=== PATIENT | female | born 1945 | race Two or more races ===

== ENCOUNTER 2021-10-20 03:20 | Inpatient (IN) | payer OTHER ==
[~2021-10-20] VITALS: Ht 154.9 cm; Wt 95.7 kg
--- NOTE | 2021-10-20 03:31 | NUR ---
BIBRA 39 FROM C/O LOW BS PER EMS 44ON SCENE, GIVEN Glucagon BY EMS AND BS 108 SAUSAGE LINKER. HX DM2. PT AWAKE AND ALERT X4 BREATHING EVEN AND UNLABORED. PLACED ON MONITOR AND V/S WNL.
--- NOTE | 2021-10-20 03:35 | NUR ---
POC BG 115. AWARE
--- NOTE | 2021-10-20 03:40 | NUR ---
20G RAC ESTABLISHED . BLOOD DRAWN AND SENT TO LAB
[2021-10-20] MEDS ORDERED: HYDROCODONE/APAP 5/325MG TABLET ONE (03:41)
[2021-10-20 03:49] LABS: BASOPHILS % (AUTO) 0.3 % (0.0-2.0); EOSINOPHILS % (AUTO) 4.2 % (0.0-6.0); HEMATOCRIT 28 % (33-45); HEMOGLOBIN 9.2 g/dL (11.5-14.8); LYMPHOCYTES # (AUTO) 1.1 K/uL (0.8-4.8); LYMPHOCYTES % (AUTO) 12.9 % (20.0-44.0); MEAN CORPUSCULAR HGB CONC 33 g/dl (31.0-36.0); MEAN CORPUSCULAR VOLUME 88 fL (82-100); MONOCYTES # (AUTO) 0.7 K/uL (0.1-1.30); MONOCYTES % (AUTO) 7.9 % (2.0-12.0); NEUTROPHILS # (AUTO) 6.5 K/uL (1.8-8.9); NEUTROPHILS % (AUTO) 74.7 % (43.0-81.0); PLATELET COUNT (AUTO) 169 K/uL (150-450); RED BLOOD CELL COUNT(AUTO) 3.12 MIL/uL (4.0-5.2); WHITE BLOOD COUNT (AUTO) 8.7 K/uL (4.3-11.0)
[2021-10-20] MEDS ORDERED: HYDROCODONE/APAP 5/325MG TABLET PO ONE (04:00)
[2021-10-20 04:04] LABS: CARBON DIOXIDE 28 mmol/L (21-32); CHLORIDE 102 mmol/L (98-107); CREATININE 2.5 mg/dL (0.6-1.3); GLUCOSE 127 mg/dL (74-106); POTASSIUM 5.6 mmol/L (3.5-5.1); SODIUM SERUM 135 mmol/L (136-145); UREA NITROGEN, BLOOD 33 mg/dL (7-18)
[2021-10-20 04:09] LABS: ALANINE AMINOTRANSFERASE 15 U/L (12-78); ALBUMIN 3.2 g/dL (3.4-5.0); ALKALINE PHOSPHATASE 90 U/L (46-116); ASPARTATE AMINOTRANSFERASE 27 U/L (15-37); BILIRUBIN,DIRECT 0.1 mg/dL (0.0-0.2); BILIRUBIN,TOTAL 0.4 mg/dL (0.2-1.0)
--- NOTE | 2021-10-20 04:20 | NUR ---
URINE COLLECTED AND SENT TO LAB
--- NOTE | 2021-10-20 04:20 | NUR ---
VIKASH COLLECTED AND SENT TO LAB
[2021-10-20 04:38] LABS: BILIRUBIN,URINE NEGATIVE (NEGATIVE); COLOR,URINE YELLOW (YELLOW); LEUKOCYTE ESTERASE ,URINE SMALL (NEGATIVE); NITRITE, URINE NEGATIVE (NEGATIVE); PROTEIN,URINE TRACE mg/dl (NEGATIVE); UGLUCOSE NEGATIVE (NEGATIVE); UROBILINOGEN,URINE 0.2 EU/dL (0.2)
[2021-10-20 04:55] LABS: BACTERIA,URINE Rare /HPF (None Seen); RBC,URINE 0-2 /HPF (0-2); SQUAMOUS EPITHELIAL CELL,UR Few /HPF (None Seen)
--- NOTE | 2021-10-20 07:20 | NUR ---
epic panel paged
--- NOTE | 2021-10-20 07:57 | NUR ---
AWALK AND ALERT NO SOB OR DISCOMFORT NOTED
[2021-10-20] MEDS ORDERED: LIRA0.6P2 SQ (07:58)
[2021-10-20] MEDS ORDERED: RANO500T6 PO (07:58)
[2021-10-20] MEDS ORDERED: LISI40TA13 PO (07:58)
[2021-10-20] MEDS ORDERED: INSU300I3 SQ (07:58)
[2021-10-20] MEDS ORDERED: CARV3.122 PO (07:58)
[2021-10-20] MEDS ORDERED: INSU100I14 SQ (07:58)
[2021-10-20] MEDS ORDERED: PREG-59 PO (07:58)
[2021-10-20] MEDS ORDERED: OMEP40CA21 PO (07:58)
[2021-10-20] MEDS ORDERED: ATOR40TA PO (07:58)
--- NOTE | 2021-10-20 07:58 | NUR ---
VINCE [facility] BED SIDE [facility]
--- NOTE | 2021-10-20 08:35 | NUR ---
ACCU CHECKED DONE 114MG/LD MD AWARE NO ORDER
--- NOTE | 2021-10-20 08:50 | NUR ---
BED GIVEN 308-1
[2021-10-20] MEDS ORDERED: MAGNESIUM HYDROXIDE 30 ML UDC PO PRN (09:00)
[2021-10-20] MEDS ORDERED: MAG HYDROX/AL HYDROX/SIMETH 30 ML UDC PO PRN (09:00)
[2021-10-20] MEDS ORDERED: DEXTROSE 50%-WATER 50 ML DISP.SYRIN IV PRN (09:00)
[2021-10-20] MEDS ORDERED: ONDANSETRON HCL/PF 4 MG/2 ML VIAL IVP PRN (09:00)
[2021-10-20] MEDS ORDERED: ZOLPIDEM TARTRATE 5 MG TABLET PO PRN (09:00)
[2021-10-20] MEDS ORDERED: Z GUARD REMEDY 4 OZ OINT TP PRN (09:00)
[2021-10-20] MEDS ORDERED: ACETAMINOPHEN 325 MG TABLET PO PRN (09:00)
--- NOTE | 2021-10-20 09:06 | NUR ---
HAND OFF TO RADHA VINES TO ROOM 308-1 VIA GARJADA OCASIO VAS AND CONDTION
--- NOTE | 2021-10-20 09:45 | NUR ---
RN Receiving Note PT Arrived to unit, AO x4 able to provide health history and reason for admission, able to express her own concerns. Patients vitals signs are stable, arrived with a Urine Baker catheter 1200ml, no signs of complications, urine clear/yellow. Patient oriented to the floor and was educated on how to use call light. All safety precautions taken with pt, no incident, call light and table within reach, bed at lowest position.
[2021-10-20] MEDS: RANOLAZINE 500 MG TAB.ER.12H PO SCH ×2 (09:59→16:45)
[2021-10-20] MEDS: PREGABALIN 100 MG CAPSULE PO SCH ×3 (09:59→16:45)
[2021-10-20] MEDS: CARVEDILOL 3.125 MG TABLET PO SCH ×2 (10:00→16:51)
[2021-10-20] MEDS ORDERED: LISINOPRIL (20MG) 20 MG TABLET PO SCH (10:00)
[2021-10-20] MEDS: PANTOPRAZOLE 40 MG TABLET.DR PO SCH (11:09)
[2021-10-20] MEDS: BLOOD SUGAR DIAGNOSTIC 1 EACH STRIP VI SCH ×3 (12:13→21:55)
[2021-10-20 13:14] LABS: THYROID STIMULATING HORMONE 4.064 uIU/mL (0.358-3.74)
[2021-10-20] MEDS: *INSULIN REGULAR(HUMULIN R)HUM 100 UNIT/ML VIAL SQ PRN ×3 (14:12→21:55)
[2021-10-20] MEDS: IV NS 0.9% 1,000 ML IV PRN (15:25)
[2021-10-20 16:00] VITALS: BP 119/55
--- NOTE | 2021-10-20 18:54 | NUR ---
RN Closing Note PT AOx4, daughter at bedside. Pt able to express her own concerns. Patient maintained safe throughout shift, no incidents. Made pt and daughter aware of POC, to monitor sugars, troponin and blood pressure. Administering fluids as prescribed, no sign of infiltration. All safety precautions taken, call light and table within reach, bed at lowest position.
[2021-10-20 20:00] VITALS: BP 126/47
--- NOTE | 2021-10-20 20:24 | NUR ---
RAW STOCK DYEING MACHINE TENDER OPENING NOTE PATIENT AWAKE IN BED WITH DAUGHTER AT BEDSIDE, ALERT/ORIENTED X 4, PATIENT ABLE TO MAKE NEEDS KNOWN. PATIENT COMPLAINING OF BACK PAIN, PT S/P BACK SURGERY ON 10/11/21, ELECTRICAL SYSTEMS ENGINEER MD PAIGE PENA ON FLOOR WITH ORDER FOR NORCO 5-325 MG PO Q4H PRN. PATIENT ON EXTERNAL TOLL TICKET CLERK READING SINUS RHYTHM WITH ST DEPRESSION, HR: 75. PATIENT AMBULATED TO BATHROOM WITH SBA BUT REQUESTED BSC. SAFETY MEASURES IN PLACE: CALL LIGHT WITHIN REACH, SIDE RAILS UP X 2, BED LOCKED IN LOWEST POSITION, BED ALARM ON. WILL CONTINUE TO MONITOR PATIENT
[2021-10-20] MEDS ORDERED: HYDROCODONE/APAP 5/325MG TABLET PO PRN (20:30)
[2021-10-20] MEDS: ATORVASTATIN 40 MG TABLET PO SCH (21:41)
[2021-10-21] VITALS: BP 121/51
[2021-10-21 04:00] VITALS: BP 104/48
[2021-10-21] MEDS: IV NS 0.9% 1,000 ML IV PRN (05:53)
[2021-10-21 06:00] LABS: BASOPHILS % (AUTO) 0.7 % (0.0-2.0); EOSINOPHILS % (AUTO) 7.2 % (0.0-6.0); HEMATOCRIT 25 % (33-45); HEMOGLOBIN 8.3 g/dL (11.5-14.8); LYMPHOCYTES # (AUTO) 1.8 K/uL (0.8-4.8); LYMPHOCYTES % (AUTO) 33.5 % (20.0-44.0); MEAN CORPUSCULAR HGB CONC 33 g/dl (31.0-36.0); MEAN CORPUSCULAR VOLUME 90 fL (82-100); MONOCYTES # (AUTO) 0.6 K/uL (0.1-1.30); MONOCYTES % (AUTO) 11.1 % (2.0-12.0); NEUTROPHILS # (AUTO) 2.6 K/uL (1.8-8.9); NEUTROPHILS % (AUTO) 47.5 % (43.0-81.0); PLATELET COUNT (AUTO) 174 K/uL (150-450); RED BLOOD CELL COUNT(AUTO) 2.78 MIL/uL (4.0-5.2); WHITE BLOOD COUNT (AUTO) 5.5 K/uL (4.3-11.0)
[2021-10-21 06:51] LABS: ALANINE AMINOTRANSFERASE 14 U/L (12-78); ALBUMIN 2.9 g/dL (3.4-5.0); ALKALINE PHOSPHATASE 82 U/L (46-116); ASPARTATE AMINOTRANSFERASE 22 U/L (15-37); BILIRUBIN,TOTAL 0.3 mg/dL (0.2-1.0); CALCIUM, SERUM 8.3 mg/dL (8.5-10.1); CARBON DIOXIDE 26 mmol/L (21-32); CHLORIDE 106 mmol/L (98-107); CREATININE 2.2 mg/dL (0.6-1.3); GLUCOSE 118 mg/dL (74-106); MAGNESIUM 1.4 mg/dL (1.8-2.4); PHOSPHORUS 4.7 mg/dL (2.5-4.9); POTASSIUM 5.6 mmol/L (3.5-5.1); SODIUM SERUM 137 mmol/L (136-145); TOTAL PROTEIN, SERUM 6.4 g/dL (6.4-8.2); UREA NITROGEN, BLOOD 34 mg/dL (7-18)
[2021-10-21 06:53] LABS: CHOLESTEROL 137 mg/dL (<200); HDL CHOLESTEROL 51 mg/dL (40-60); LDL 62 mg/dL (0-99); TRIGLYCERIDES 110 mg/dL (30-150)
[2021-10-21] MEDS: INSULIN REGULAR, HUMAN 100 UNIT/ML 3 ML VIAL SQ PRN (06:56)
[2021-10-21] MEDS: BLOOD SUGAR DIAGNOSTIC 1 EACH STRIP VI SCH ×4 (06:56→21:24)
--- NOTE | 2021-10-21 07:10 | NUR ---
RADIAL DRILL PRESS SET UP OPERATOR CLOSING NOTE PATIENT SLEEPING IN BED, ALERT/ORIENTED X 4, PATIENT ABLE TO MAKE NEEDS KNOWN. PATIENT ON EXTERNAL TAX AUDITOR READING SINUS RHYTHM WITH ST DEPRESSION, HR: 71. PATIENT AMBULATED TO BATHROOM WITH SBA. MEDICATIONS GIVEN ORDERED, PT NEEDS MET THROUGHOUT SHIFT, PAIN MANAGED. BLOOD SUGARS WNL, NO COVERAGE NEEDED PER SLIDING SCALE. SAFETY MEASURES IN PLACE: CALL LIGHT WITHIN REACH, SIDE RAILS UP X 2, BED LOCKED IN LOWEST POSITION, BED ALARM ON. WILL ENDORSE TO DAYSHIFT NURSE FOR CONTINUITY OF CARE
--- NOTE | 2021-10-21 07:20 | NUR ---
FENCE MAKING MACHINE OPERATOR OPENING NOTE RECEIVED PATIENT AWAKE IN BED , ALERT/ORIENTED X 4, PATIENT ABLE TO MAKE NEEDS KNOWN., PT S/P BACK SURGERY ON 10/11/21, NO C/O OF PAIN AND DISCOMFORT . PATIENT ON EXTERNAL MOTOR GRADER ROUGH GRADE READING SINUS RHYTHM WITH ST DEPRESSION, HR: 71. RAC G 20 WITH NS @75 ML /HR . SAFETY MEASURES IN PLACE: CALL LIGHT WITHIN REACH, SIDE RAILS UP X 2, BED LOCKED IN LOWEST POSITION, BED ALARM ON. WILL CONTINUE TO MONITOR PATIENT
[2021-10-21 08:00] VITALS: BP_SYST 124; BP_SYST 136; BP_DIAS 56; BP_DIAS 85
[2021-10-21] MEDS: Magnesium 1GM/D5W 100ML PREMIX 100 ML IV SCH ×2 (08:53→10:31)
[2021-10-21] MEDS: PANTOPRAZOLE 40 MG TABLET.DR PO SCH (08:53)
[2021-10-21] MEDS: RANOLAZINE 500 MG TAB.ER.12H PO SCH ×2 (08:53→16:36)
[2021-10-21] MEDS: PREGABALIN 100 MG CAPSULE PO SCH ×3 (08:54→16:37)
[2021-10-21] MEDS: CARVEDILOL 3.125 MG TABLET PO SCH ×2 (08:54→16:38)
[2021-10-21] MEDS: *INSULIN REGULAR(HUMULIN R)HUM 100 UNIT/ML VIAL SQ PRN ×3 (12:47→21:30)
--- NOTE | 2021-10-21 18:42 | NUR ---
RUSSIAN HISTORY PROFESSOR CLOSING NOTES PATIENT AWAKE IN BED , ALERT/ORIENTED X 4, PATIENT ABLE TO MAKE NEEDS KNOWN., PT S/P BACK SURGERY ON 10/11/21, ALL DUE MEDS GIVEN AND WITH LOW MG AND MAGNESIUM REPLACED OF 2 GMS IV , NO C/O OF PAIN AND DISCOMFORT . PATIENT ON EXTERNAL INDEPENDENT CONTRACTOR READING SINUS RHYTHM WITH IST DEGREE BLOCK HR: 72. LEFT HAND G # 24 WITH NS @75 ML /HR . SAFETY MEASURES IN PLACE: CALL LIGHT WITHIN REACH, SIDE RAILS UP X 2, BED LOCKED IN LOWEST POSITION, BED ALARM ON. ENDORSED TO NEXT SHIFT
[2021-10-21 20:00] VITALS: BP 100/66
--- NOTE | 2021-10-21 20:07 | NUR ---
WORKFORCE PLANNING ANALYST NOTES PATIENT AWAKE IN BED , ALERT/ORIENTED X 4, PATIENT ABLE TO MAKE NEEDS KNOWN., PT S/P BACK SURGERY ON 10/11/21, NO C/O OF PAIN AND DISCOMFORT. PATIENT ON EXTERNAL STOVE BOTTOM WORKER READING SINUS RHYTHM WITH IST DEGREE BLOCK HR: 72. LEFT HAND G # 24 WITH NS @75 ML /HR .SAFETY MEASURES IN PLACE: CALL LIGHT WITHIN REACH, SIDE RAILS UP X 2, BED LOCKED IN LOWEST POSITION, BED ALARM ON.
[2021-10-21] MEDS: ATORVASTATIN 40 MG TABLET PO SCH (21:24)
--- NOTE | 2021-10-21 21:30 | NUR ---
telecom engineer notes pt refused insulin per pt ' i didn't eat dinner i don't want my sugar to go too low if my sugar is still high in the morning i will let you cover it' risk and benefit explained x3 refused x3
[2021-10-22] VITALS: BP 131/63
[2021-10-22 04:00] VITALS: BP 124/56
[2021-10-22] MEDS: BLOOD SUGAR DIAGNOSTIC 1 EACH STRIP VI SCH ×4 (06:32→22:06)
[2021-10-22] MEDS: INSULIN REGULAR, HUMAN 100 UNIT/ML 3 ML VIAL SQ PRN ×3 (06:33→18:13)
[2021-10-22 06:42] LABS: BASOPHILS % (AUTO) 0.8 % (0.0-2.0); EOSINOPHILS % (AUTO) 5.8 % (0.0-6.0); HEMATOCRIT 26 % (33-45); LYMPHOCYTES # (AUTO) 1.5 K/uL (0.8-4.8); MEAN CORPUSCULAR HGB CONC 31 g/dl (31.0-36.0); MEAN CORPUSCULAR VOLUME 95 fL (82-100); MONOCYTES # (AUTO) 0.6 K/uL (0.1-1.30); MONOCYTES % (AUTO) 11.7 % (2.0-12.0); NEUTROPHILS # (AUTO) 2.6 K/uL (1.8-8.9); NEUTROPHILS % (AUTO) 51.7 % (43.0-81.0); PLATELET COUNT (AUTO) 167 K/uL (150-450); RED BLOOD CELL COUNT(AUTO) 2.71 MIL/uL (4.0-5.2); WHITE BLOOD COUNT (AUTO) 5.1 K/uL (4.3-11.0)
--- NOTE | 2021-10-22 06:46 | NUR ---
PRODUCTION LINE ASSEMBLER CLOSING NOTE PATIENT SLEEPING IN BED, ALERT/ORIENTED X 4, PATIENT ABLE TO MAKE NEEDS KNOWN. PATIENT ON EXTERNAL FLOAT REMOVER READING SR WITH 1ST DEGREE BLOCK, HR: 70S PATIENT AMBULATED TO BATHROOM WITH SBA. MEDICATIONS GIVEN ORDERED, PT NEEDS MET THROUGHOUT SHIFT, PAIN MANAGED. BLOOD SUGARS WNL, NO COVERAGE NEEDED PER SLIDING SCALE. SAFETY MEASURES IN PLACE: CALL LIGHT WITHIN REACH, SIDE RAILS UP X 2, BED LOCKED IN LOWEST POSITION, BED ALARM ON. WILL ENDORSE TO DAYSHIFT NURSE FOR CONTINUITY OF CARE
[2021-10-22 07:14] LABS: ALANINE AMINOTRANSFERASE 12 U/L (12-78); ALBUMIN 2.6 g/dL (3.4-5.0); ALKALINE PHOSPHATASE 80 U/L (46-116); ASPARTATE AMINOTRANSFERASE 16 U/L (15-37); BILIRUBIN,TOTAL 0.2 mg/dL (0.2-1.0); CALCIUM, SERUM 7.9 mg/dL (8.5-10.1); CARBON DIOXIDE 23 mmol/L (21-32); CHLORIDE 105 mmol/L (98-107); CREATININE 2.1 mg/dL (0.6-1.3); GLUCOSE 138 mg/dL (74-106); PHOSPHORUS 4.7 mg/dL (2.5-4.9); POTASSIUM 6.1 mmol/L (3.5-5.1); SODIUM SERUM 136 mmol/L (136-145); UREA NITROGEN, BLOOD 48 mg/dL (7-18)
--- NOTE | 2021-10-22 07:16 | NUR ---
SOLAR LAB TECHNICIAN OPENING NOTES: RECEIVED PATIENT ASLEEP IN BED BUT EASILY ROUSED, ALERT/ORIENTED X 4.PATIENT ABLE TO MAKE NEEDS KNOWN. PT S/P BACK SURGERY 10/11/21, NO C/O OF PAIN AND DISCOMFORT AT THIS TIME. PATIENT ON EXTERNAL PROCUREMENT PROFESSIONAL LOGISTICS READING SINUS RHYTHM WITH ST DEPRESSION, HR: 71. IV ACCESS @ L HAND #24 WITH NS @75 ML /HR . SAFETY MEASURES IN PLACE: CALL LIGHT WITHIN REACH, SIDE RAILS UP X 2, BED LOCKED IN LOWEST POSITION, BED ALARM ON. WILL CONTINUE TO MONITOR PATIENT.
[2021-10-22] MEDS: PANTOPRAZOLE 40 MG TABLET.DR PO SCH (08:46)
[2021-10-22] MEDS: PREGABALIN 100 MG CAPSULE PO SCH ×3 (08:46→17:27)
[2021-10-22] MEDS: RANOLAZINE 500 MG TAB.ER.12H PO SCH ×2 (08:47→17:27)
[2021-10-22] MEDS: CARVEDILOL 3.125 MG TABLET PO SCH ×2 (08:47→17:28)
[2021-10-22] MEDS ORDERED: SODIUM POLYSTYRENE SULFONATE 15 G/60 ML BOTTLE PO ONE (11:30)
[2021-10-22] MEDS ORDERED: IV NS 0.9% 1,000 ML IV PRN (12:02)
--- NOTE | 2021-10-22 19:30 | NUR ---
RN OPENING NOTE PATIENT IN BED, AWAKE, PATIENT IS ABLE TO MAKE NEEDS KNOWN, A/O X 4. PATIENT IS CURRENTLY ON RA, TOLERATING WELL. NO RESPIRATORY DISTRESS NOTED. PATIENT'S TELE MONITOR READS SR [address]PRESSION AND 1ST DEGREE AV BLOCK. WALKER AT BEDSIDE. PER RN, IV ACCESS PULLED OUT ACCIDENTALLY, WILL INSERT NEW IV ACCESS. SAFETY MEASURES IN PLACE: BED LOCKED AND IN LOWEST POSITION, CALL LIGHT WITHIN REACH, SIDE RAILS UP. WILL MONITOR PATIENT CLOSELY.
[2021-10-22 20:00] VITALS: BP_SYST 111; BP_SYST 140; BP_DIAS 57; BP_DIAS 63
--- NOTE | 2021-10-22 20:48 | NUR ---
STAFF REGISTERED NURSE OPENING NOTES: PATIENT AWAKE IN BED BUT EASILY ROUSED, ALERT/ORIENTED X 4. PATIENT ABLE TO MAKE NEEDS KNOWN. PT S/P BACK SURGERY 10/11/21. NO C/O OF PAIN AND DISCOMFORT AT THIS TIME. PATIENT ON EXTERNAL FUR BLOWER READING SINUS RHYTHM WITH ST DEPRESSION, HR: 71. IV ACCESS DC'D AT THE MOMENT, WILL REINSERT. SAFETY MEASURES IN PLACE: CALL LIGHT WITHIN REACH, SIDE RAILS UP X 2, BED LOCKED IN LOWEST POSITION, BED ALARM ON. ENDORSED TO PM SHIFT. Addendum: 10/22/21 at 2049 by MICHAEL JHAVERI RN CLOSING NOTES
--- NOTE | 2021-10-22 21:01 | NUR ---
R WRIST 20 G INSERTED. PATENT AND INTACT. PATIENT REQUEST FOR IVF TO BE OFF AT THIS TIME D/T PATIENT USING THE RESTROOM FREQUENTLY.
[2021-10-22] MEDS: ATORVASTATIN 40 MG TABLET PO SCH (21:40)
[2021-10-22] MEDS: *INSULIN REGULAR(HUMULIN R)HUM 100 UNIT/ML VIAL SQ PRN (22:05)
--- NOTE | 2021-10-22 22:05 | NUR ---
RN NOTE PATIENT'S BS 182 MG/DL, 3 UNITS INSULIN COVERAGE GIVEN. SNACKS PROVIDED. WILL MONITOR PATIENT FOR HYPO/HYPERGLYCEMIA.
[2021-10-23] VITALS: BP 148/82
[2021-10-23 04:00] VITALS: BP 148/59
[2021-10-23] MEDS: INSULIN REGULAR, HUMAN 100 UNIT/ML 3 ML VIAL SQ PRN ×2 (06:22→11:28)
[2021-10-23] MEDS: BLOOD SUGAR DIAGNOSTIC 1 EACH STRIP VI SCH ×2 (06:30→11:28)
--- NOTE | 2021-10-23 06:47 | NUR ---
RN CLOSING NOTE PATIENT IN BED, AWAKE, PATIENT IS ABLE TO MAKE NEEDS KNOWN, A/O X 4. PATIENT IS CURRENTLY ON RA, TOLERATING WELL. NO RESPIRATORY DISTRESS NOTED. PATIENT'S TELE MONITOR READS SR 69 bpm. WALKER AT BEDSIDE. PATIENT HAS A R WRIST 20 G PATENT AND INTACT, NS AT 100 ML/HR ON GOING. SAFETY MEASURES IN PLACE: BED LOCKED AND IN LOWEST POSITION, CALL LIGHT WITHIN REACH, SIDE RAILS UP. ALL NEEDS MET AND ATTENDED. ALL ORDERS CARRIED OUT. WILL ENDORSE TO DAY SHIFT NURSE FOR JACINDA.
[2021-10-23 07:03] LABS: BASOPHILS % (AUTO) 0.6 % (0.0-2.0); EOSINOPHILS % (AUTO) 5.8 % (0.0-6.0); HEMATOCRIT 25 % (33-45); HEMOGLOBIN 8.5 g/dL (11.5-14.8); LYMPHOCYTES # (AUTO) 1.2 K/uL (0.8-4.8); LYMPHOCYTES % (AUTO) 25.8 % (20.0-44.0); MEAN CORPUSCULAR HGB CONC 34 g/dl (31.0-36.0); MEAN CORPUSCULAR VOLUME 89 fL (82-100); MONOCYTES # (AUTO) 0.6 K/uL (0.1-1.30); MONOCYTES % (AUTO) 11.9 % (2.0-12.0); NEUTROPHILS # (AUTO) 2.6 K/uL (1.8-8.9); NEUTROPHILS % (AUTO) 55.9 % (43.0-81.0); PLATELET COUNT (AUTO) 192 K/uL (150-450); RED BLOOD CELL COUNT(AUTO) 2.86 MIL/uL (4.0-5.2); WHITE BLOOD COUNT (AUTO) 4.7 K/uL (4.3-11.0)
[2021-10-23 07:22] LABS: ALANINE AMINOTRANSFERASE 17 U/L (12-78); ALKALINE PHOSPHATASE 95 U/L (46-116); ASPARTATE AMINOTRANSFERASE 20 U/L (15-37); BILIRUBIN,TOTAL 0.3 mg/dL (0.2-1.0); CALCIUM, SERUM 8.4 mg/dL (8.5-10.1); CARBON DIOXIDE 24 mmol/L (21-32); CHLORIDE 107 mmol/L (98-107); CREATININE 2.1 mg/dL (0.6-1.3); GLUCOSE 150 mg/dL (74-106); PHOSPHORUS 4.1 mg/dL (2.5-4.9); SODIUM SERUM 138 mmol/L (136-145); TOTAL PROTEIN, SERUM 6.6 g/dL (6.4-8.2); UREA NITROGEN, BLOOD 48 mg/dL (7-18)
--- NOTE | 2021-10-23 07:24 | NUR ---
WOUND CARE CONSULT: PT SEEN FOR CLOSED INCISION TO LOWER BACK WITH SOME CRUSTING BUT NO ERYTHEMA, DRAINAGE OR TENDERNESS, PRESENT ON ADMISSION. RECOMMEND PROTECT WITH FOAM DRESSING AND PT TO FOLLOW UP WITH SURGEON. DISCUSSED SKIN PROTECTION WITH NURSING STAFF.
--- NOTE | 2021-10-23 07:24 | NUR ---
DIRECTOR PART OPENING NOTES: PATIENT RECEIVED IN BED AWAKE, ALERT AND ORIENTED X 4. ABLE TO MAKE NEEDS KNOWN, DENIES PAIN OR ANY DISCOMFORTS AT THIS TIME. ON EXTERNAL MARINE ELECTRICIAN HELPER READING SINUS RHYTHM WITH ST DEPRESSION AND 1ST DEGREE AV BLOCK, HR 63 AT THIS TIME, NO C/O CARDIAC DISTRESS VOICED. IV ACCESS ON RIGHT WRIST INTACT WITH IVF OF NS RUNNING AT 100ML/HR, NO S/SX OF INFILTRATION AT SITE NOTED. SAFETY MEASURES IN PLACE: CALL LIGHT WITHIN REACH, SIDE RAILS UP X 2, BED LOCKED IN LOWEST POSITION, BED ALARM ON. WILL MONITOR PT ACCORDINGLY.
[2021-10-23 08:00] VITALS: BP_SYST 151; BP_SYST 164; BP_DIAS 72; BP_DIAS 91
[2021-10-23] MEDS: RANOLAZINE 500 MG TAB.ER.12H PO SCH (08:16)
[2021-10-23] MEDS: PREGABALIN 100 MG CAPSULE PO SCH ×2 (08:16→12:08)
[2021-10-23] MEDS: PANTOPRAZOLE 40 MG TABLET.DR PO SCH (08:16)
[2021-10-23] MEDS: CARVEDILOL 3.125 MG TABLET PO SCH (08:17)
[2021-10-23 11:07] LABS: *SPE ALPHA-1-GLOBULIN 0.3 g/dL (0.0-0.4); *SPE ALPHA-2-GLOBULIN 0.9 g/dL (0.4-1.0); *SPE BETA GLOBULIN 0.9 g/dL (0.7-1.3); *SPE M-SPIKE Not Observed g/dL (Not Observed)
[2021-10-23 12:00] VITALS: BP 162/60
--- NOTE | 2021-10-23 13:05 | NUR ---
RN NOTES PT SEEN BY DR DING AND REPORTED THAT PT STILL WITH HIGH POTASSIUM LEVEL OF 6.0, DR DING WITH ORDER TO GIVE PT KAYEXALATE 60GMS. WILL CONTINUE TO MONITOR.
[2021-10-23] MEDS ORDERED: SODIUM POLYSTYRENE SULFONATE 15 G/60 ML BOTTLE PO ONE (13:30)
--- NOTE | 2021-10-23 14:07 | NUR ---
RN NOTES KAYEXELATE 60MG P.O. GIVEN TO PT ORDERED.
--- NOTE | 2021-10-23 15:03 | NUR ---
RN DISCHARGED NOTES PT DISCHARGED HOME IN STABLE CONDITION. A/O X4. ABLE TO MAKE NEEDS KNOWN. ALL BELONGINGS ACCOUNTED FOR AND PT'S DAUGHTER SIGNED BELONGINGS LIST. IV ACCESS ON RIGHT HAND G#2O REMOVED WITH NO ACTIVE BLEEDING NOTED, DRY PRESSURE DRESSING APPLIED AT SITE. PHOTOS OF SKIN ISSUES TAKEN FROM PREVIOUS SHIFT AND WAS FILED ON HER CHART. HEALTH TEACHINGS AND DISCHARGE INSTRUCTIONS GIVEN TO PT AND HER DAUGHTER DARÍO, BOTH VERBALIZED UNDERSTANDING. EXIT FOLDER HANDED TO PT'S DAUGHTER. NAME ARMBAND REMOVED. PT LEFT UNIT @ 1500 VIA WHEELCHAIR ACCOMPANIED BY DYLAN MCCABE. AND CHARGE NURSE AWARE OF DISCHARGE.
== END 2021-10-23 15:00 | disposition home or self-care (01) | DRG 639 ==
LOC: ER 03:27 → TELE 09:07
PROVIDERS: ADMIT Nurse Practitioner Acute Care; ATTEND Nurse Practitioner Acute Care
DX: E11.649 Type 2 diabetes mellitus with hypoglycemia without coma (principal); N17.0 Acute kidney failure with tubular necrosis; I12.9 Hypertensive chronic kidney disease with stage 1 through stage 4 chronic kidney disease, or unspecified chronic kidney disease; N18.9 Chronic kidney disease, unspecified; E87.5 Hyperkalemia; E11.22 Type 2 diabetes mellitus with diabetic chronic kidney disease; Z20.822 Contact with and (suspected) exposure to COVID-19; Z98.1 Arthrodesis status; Z79.4 Long term (current) use of insulin; Z79.899 Other long term (current) drug therapy; T50.905A Adverse effect of unspecified drugs, medicaments and biological substances, initial encounter; Y92.009 Unspecified place in unspecified non-institutional (private) residence as the place of occurrence of the external cause; E78.5 Hyperlipidemia, unspecified; Z68.38 Body mass index [BMI] 38.0-38.9, adult; E66.9 Obesity, unspecified; D64.9 Anemia, unspecified; R94.31 Abnormal electrocardiogram [ECG] [EKG]; I25.10 Atherosclerotic heart disease of native coronary artery without angina pectoris; Z98.61 Coronary angioplasty status; Z95.1 Presence of aortocoronary bypass graft
CPT/HCPCS: 36415; 71045-TC; 76770-TC; 80048-TC; 80053-TC; 80061-TC; 80076-TC; 81001; 82728-TC; 82962-TC; 83540-TC; 83735-TC; 84100-TC; 84155; 84165; 84439-TC; 84443-TC; 84484-TC; 85025-TC; 87081-TC; 87086-TC; 93307-TC; 97116-TC; 97530-TC; C9803; G0378; J1815; J3475; J7030

== ENCOUNTER 2023-06-13 15:21 | Emergency (ER) | payer BC, MEDICAID ==
[~2023-06-13] VITALS: Ht 157.5 cm; Wt 90.7 kg
[~2023-06-13 15:21] MED LIST: ATOR40TA PO; CARV3.122 PO; INSU100I14 SQ; INSU300I3 SQ; LIRA0.6P2 SQ; OMEP40CA21 PO; PREG-59 PO; RANO500T6 PO
[2023-06-13] MEDS ORDERED: MORPHINE SULFATE INJ 4 MG/ML DISP.SYRIN ONE (15:56)
[2023-06-13] MEDS: MORPHINE SULFATE INJ 2 MG/ML DISP.SYRIN IV ONE (16:00)
[2023-06-13 16:06] LABS: BASOPHILS # (AUTO) 0.1 K/uL (0.0-0.2); BASOPHILS % (AUTO) 0.9 % (0.0-2.0); EOSINOPHILS # (AUTO) 0.2 K/uL (0.0-0.7); EOSINOPHILS % (AUTO) 3.4 % (0.0-6.0); HEMATOCRIT 31 % (33-45); HEMOGLOBIN 10.1 g/dL (11.5-14.8); LYMPHOCYTES # (AUTO) 1.5 K/uL (0.8-4.8); MEAN CORPUSCULAR HEMOGLOBIN 28 PG (26.0-33.0); MEAN CORPUSCULAR HGB CONC 33 g/dl (31.0-36.0); MEAN CORPUSCULAR VOLUME 87 fL (82-100); MONOCYTES # (AUTO) 0.4 K/uL (0.1-1.30); MONOCYTES % (AUTO) 7.4 % (2.0-12.0); NEUTROPHILS # (AUTO) 3.6 K/uL (1.8-8.9); NEUTROPHILS % (AUTO) 62.3 % (43.0-81.0); PLATELET COUNT (AUTO) 171 K/uL (150-450); RED BLOOD CELL COUNT(AUTO) 3.57 MIL/uL (4.0-5.2); RED CELL DISTRIBUTION WIDTH 14.4 % (11.5-15.0); WHITE BLOOD COUNT (AUTO) 5.8 K/uL (4.3-11.0)
[2023-06-13 16:18] LABS: CALCIUM, SERUM 8.6 mg/dL (8.5-10.1); CARBON DIOXIDE 27 mmol/L (21-32); CHLORIDE 105 mmol/L (98-107); CREATININE 1.8 mg/dL (0.6-1.3); GLUCOSE 214 mg/dL (74-106); POTASSIUM 5.1 mmol/L (3.5-5.1); SODIUM SERUM 136 mmol/L (136-145); UREA NITROGEN, BLOOD 48 mg/dL (7-18)
[2023-06-13 16:28] LABS: ALANINE AMINOTRANSFERASE 20 U/L (12-78); ALBUMIN 3.1 g/dL (3.4-5.0); ALKALINE PHOSPHATASE 131 U/L (46-116); ASPARTATE AMINOTRANSFERASE 21 U/L (15-37); BILIRUBIN,DIRECT 0.1 mg/dL (0.0-0.2); BILIRUBIN,TOTAL 0.3 mg/dL (0.2-1.0); TOTAL PROTEIN, SERUM 7.1 g/dL (6.4-8.2)
[2023-06-13] MEDS ORDERED: CYCLOBENZAPRINE 10 MG TABLET ONE (17:59)
[2023-06-13] MEDS ORDERED: LIDOCAINE 5% (PATCH) 1 EA PATCH TP ONE (17:59)
[2023-06-13] MEDS: CYCLOBENZAPRINE 10 MG TABLET PO ONE (18:00)
[2023-06-13] MEDS: LIDOCAINE 5% (PATCH) 1 EA PATCH TP SCH (18:04)
[2023-06-13] MEDS ORDERED: IBUP-1953 PO (19:23)
[2023-06-13] MEDS ORDERED: TYL2T PO (19:23)
[2023-06-13 19:37] VITALS: BP 134/77; TEMP 98; O2SAT 99
== END 2023-06-13 19:38 | disposition home or self-care (01) ==
LOC: ER 15:25
DX: S42.012A Anterior displaced fracture of sternal end of left clavicle, initial encounter for closed fracture (principal); I10 Essential (primary) hypertension; E11.9 Type 2 diabetes mellitus without complications; Z79.4 Long term (current) use of insulin; Z79.899 Other long term (current) drug therapy; W01.0XXA Fall on same level from slipping, tripping and stumbling without subsequent striking against object, initial encounter; Y93.89 Activity, other specified; Y92.009 Unspecified place in unspecified non-institutional (private) residence as the place of occurrence of the external cause; Y99.8 Other external cause status
CPT/HCPCS: 99285; 96374; 71045; 93005 ×2; 73552; 73030; 85025; 80048; 80076; 36415; 84484 ×2; J2270